=== PATIENT | female | born 1955 | race African-American/Black ===

== ENCOUNTER 2019-08-20 04:52 | Emergency (ER) | payer MEDICARE ==
[~2019-08-20] VITALS: Ht 170.2 cm; Wt 78.0 kg
[2019-08-20] MEDS ORDERED: IBUPROFEN 600MG TABLET PO ONE (06:30)
[2019-08-20 07:50] VITALS: BP 140/89
== END 2019-08-20 07:58 | disposition home or self-care (01) ==
LOC: ER 04:52
DX: M25.511 Pain in right shoulder (principal); M25.521 Pain in right elbow; J45.909 Unspecified asthma, uncomplicated; Z87.828 Personal history of other (healed) physical injury and trauma
CPT/HCPCS: 73030; 73070; 99283